=== PATIENT | female | born 1990 | race American Indian/Alaskan Native ===

== ENCOUNTER 2017-03-17 18:02 | Emergency (ER) | payer SELFPAY ==
[2017-03-17 18:17] VITALS: BP 112/79
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
== END 2017-03-17 20:52 | disposition home or self-care (01) ==
LOC: ED 18:02
DX: S01.511A Laceration without foreign body of lip, initial encounter (principal); F17.200 Nicotine dependence, unspecified, uncomplicated
CPT/HCPCS: 99281